=== PATIENT | male | born 1955 | race Caucasian/White ===

== ENCOUNTER 2023-04-13 16:06 | Emergency (ER) | payer BC, OTHER ==
[2023-04-13 16:26] VITALS: BP 127/78; PULSE 66; RESP 18; TEMP 97.9; BMI 27.3
== END 2023-04-13 19:16 | disposition home or self-care (01) ==
LOC: JERFT 16:06
DX: R20.0 Anesthesia of skin (principal); R22.0 Localized swelling, mass and lump, head; R20.2 Paresthesia of skin; R04.0 Epistaxis; S02.85XA Fracture of orbit, unspecified, initial encounter for closed fracture; S02.40DA Maxillary fracture, left side, initial encounter for closed fracture; Y04.2XXA Assault by strike against or bumped into by another person, initial encounter
CPT/HCPCS: 70486-TC; 72125-TC; 99284-25